=== PATIENT | female | born 1980 | race Caucasian/White ===

== ENCOUNTER 2017-07-10 10:51 | Inpatient (IN) ==
[2017-07-10] MEDS ORDERED: Ondansetron 4 MG/2 ML VIAL IVP PRN (11:22)
[2017-07-10] MEDS ORDERED: *HR* Nalbuphine 10 MG/ML AMPUL IVP PRN (11:22)
[2017-07-10] MEDS ORDERED: Naloxone 0.4 MG/ML INJ IVP PRN (11:22)
[2017-07-10] MEDS ORDERED: Famotidine 20 MG/2 ML VIAL IVP PRN (11:22)
[2017-07-10] MEDS ORDERED: Lidocaine 1% 20 ML MDV INFILT PRN (11:22)
[2017-07-10] MEDS ORDERED: Metoclopramide 10 MG/2 ML VIAL IVP PRN (11:22)
[2017-07-10] MEDS ORDERED: Penicillin G Potassium 5,000,000 UNIT in D5% in Water (Mini-Bag+) 100 ML IVPB ONE (11:27)
[2017-07-10] MEDS ORDERED: Oxytocin 20 units/ LR 1000 mL 20 UNIT/1,000 ML BAG IVC SCH ×2 (11:30→22:17)
[2017-07-10] MEDS: Ringers Solution, Lactated 1,000 ML IVC SCH ×2 (12:15→16:38)
[2017-07-10] MEDS ORDERED: Penicillin G Potassium 5,000,000 UNIT in 0.9 % Sodium Chloride Mini Bag 100 ML IVPB ONE (12:15)
[2017-07-10 12:16] LABS: Basophils % 0.3 %; Eosinophils # 0.1 K/mcL (0.0-0.6); Eosinophils % 0.5 %; Hematocrit 35.3 % (35.3-44.9); Hemoglobin 11.7 g/dL (11.5-15.4); Immature Granulocytes % 0.5 % (0-4); Lymphocytes # 1.9 K/mcL (0.6-4.6); Lymphocytes % 19.5 %; Mean Corpuscular HGB Conc 33.1 g/dL (31.6-35.5); Mean Corpuscular Hemoglobin 29.7 pg (28.0-33.3); Mean Corpuscular Volume 89.6 fL (83.0-100.0); Mean Platelet Volume 10.2 fL (9.4-12.4); Monocytes # 0.5 K/mcL (0.0-1.3); Neutrophils # 7.3 K/mcL (1.6-8.9); Platelet Count 203 K/mcL (140-400); Red Blood Count 3.94 M/mcL (3.82-4.97); Red Cell Distribution Width 13.7 % (11.5-14.5); Segmented Neutrophils % 74.2 %
--- NOTE | 2017-07-10 12:51 | OB/GYN History & Physical ---
Date of Encounter: 07/10/17 Time of Encounter: 12:47 Assessment and Plan (1) 37 weeks gestation of Current visit: Yes Status: Acute (2) Intrauterine growth restriction (IUGR) affecting care of mother, third trimester, single gestation Current visit: Yes Status: Acute Admit to labor and delivery Induction of labor with oxytocin Penicillin for GBS Nubain and epidural as desired Anticipate History of Present Illness HPI: Ms. Bruce is a 37 year old female 37+2 weeks gestation presents to labor and delivery for induction of labor. ultrasound today shows: TA exam-- morin VTX male--+FHR--anterior grade 1 placenta--EFW 2372 grams 5lb 4oz 10.2 %--EGA 57t5l--ARZ 54j8g--FSS 21.02 cm--S/D ratio 2.6--RI .6 with head and abdominal circumference less than the 1st percentile. Drs. Cruz and Robin agreed that patient with gestational diabetes needs to be induced at this time. Reports good movement, denies vaginal bleeding or leaking of fluid. complicated with gestational diabetes patient is controlled on metformin. Labs: A+, rubella immune, GBS positive, all other serologies negative Past Med Surg Social Fam HX - Past Medical History Medical history: other Psychiatric history: anxiety, depression - Past Surgical History Surgical History: no surgical history - Social History Smoking Status: Never smoker Smokeless Tobacco Status: No Alcohol use: none Drug use: none - Family History Mother Family Member Ethnicity: Non- Living Status: Still Living Hx Family Endocrine Disorder: Yes (diabetes) Obstetrical History - Pregnancies : 2 Para: 1 Term: 1 : 0 Ab's: 0 Livin Medications and Allergies Pnv Cmb#21/Iron/Folic Acid [ Complete Caplet] 1 each PO DAILY 06/22/17 [ History] Sertraline [Zoloft] 50 mg PO DAILY 06/22/17 [History] metFORMIN [Glucophage] 1,000 mg PO DAILY 06/22/17 [History] Omeprazole Magnesium [Prilosec Otc] 20 mg PO DAILY 07/10/17 [History] 3 Allergy/AdvReac Type Severity Reaction Status Date / Time No Known Allergies Allergy Verified 07/02/17 13:45 Exam - Constitutional Constitutional: well developed, well nourished, no acute distress, average body habitus - Neck Neck exam: full ROM - Lungs Respiratory exam: CTAB - Cardiovascular Cardiovascular exam: RRR - Abdomen Abdomen: Present: bowel sounds normal, gravid, non tender - Extremities Extremities exam: normal capillary refill, normal inspection - Vagina Vagina: Present: normal moisture - Cervix Dilation: 4 (per MD exam) - Uterus Uterus exam: Present: normal size, normal contour Results Result Diagrams: 07/10/17 11:40 All other labs normal. - VTE Reasons for not Prescribing Prophylaxis: Treatment not Indicated - Low risk for VTE
[2017-07-10 13:21] LABS: Amphetamine Screen,Urine Negative ng/mL (Cutoff=1000); Barbiturate Screen,Urine Negative ng/mL (Cutoff=200); Benzodiazepines Screen,Urine Negative ng/mL (Cutoff=200); Cannabinoid Screen,Urine Negative ng/mL (Cutoff = 50); Cocaine Screen,Urine Negative ng/mL (Cutoff= 300); Opiate Screen,Urine Negative ng/mL (Cutoff=300); Phencyclidine Screen,Urine Negative ng/mL (Cutoff=25)
[2017-07-10] MEDS ORDERED: EPHEDrine 50 MG/ML VIAL IVP PRN (14:08)
[2017-07-10] MEDS ORDERED: *HR* FentaNYL (PF) 100 MCG/2 ML VIAL EP ONE (14:08)
--- NOTE | 2017-07-10 14:08 | Anesthesia Evaluation PreOp ---
Date of Encounter: 07/10/17 Time of Encounter: 14:06 - Past History Planned Operation: yris Cardiac History: Denies any Significant Hx Pulmonary History: Denies Any Significant HX DIRECTOR [employer]LECTRON[employer] History: Denies Any Significant HX Other Medical History: Diabetes Type II (gestational), GERD, Other (depression) Anesthesia History: No Prior Anesthetic Complications, Past Anesthesia : Yes (37 weeks ) Alcohol Use: none Drug use: none Medications and Allergies Pnv Cmb#21/Iron/Folic Acid [ Complete Caplet] 1 each PO DAILY 06/22/17 [ History] Sertraline [Zoloft] 50 mg PO DAILY 06/22/17 [History] metFORMIN [Glucophage] 1,000 mg PO DAILY 06/22/17 [History] Omeprazole Magnesium [Prilosec Otc] 20 mg PO DAILY 07/10/17 [History] 3 Allergy/AdvReac Type Severity Reaction Status Date / Time No Known Allergies Allergy Verified 07/02/17 13:45 - Meds/Allergy Pre-op Review Medications Reviewed: Yes Allergies Reviewed: Yes Beta Blockers on Current Med List: No Anesthesia Results - Labs 07/10/17 11:40 Anesthesia Exam O2 Sat Height 1.57 m Height 1.57 m Weight 90 kg Weight 90 kg Height: 62 Weight: 90 - HEENT Pupil (Motor): Pupils equal Mallampati: II Teeth: Normal Oral Opening: Greater than 3 - DIRECTOR [employer]LECT[employer] LOC: Oriented DIRECTOR [employer]LECT[employer] Motor: Normal RUE, Normal LUE, Normal RLE, Normal LLE, Normal Face [employer] Sensory: Normal: RUE, LUE, RLE, LLE, Face - Cardiac Rhythm: Regular Murmur: None JVD: No Carotid Bruit: No - Pulmonary Respiratory Effort: Symmetrical Anesthesia Assess/Plan ASA Score: 2 Modified Spruce Scale for Level of Consciousness: Cooperative, oriented, and tranquil Anesthetic Plan: Regional Monitoring Plan: Standard Monitors
[2017-07-10] MEDS ORDERED: Epidural Premix (fent/bupiv) 110 ML EP SCH (14:15)
[2017-07-10] MEDS ORDERED: Epidural Premix (fent/bupiv) 110 ML EP ONE (14:16)
[2017-07-10] MEDS ORDERED: *HR* FentaNYL (PF) 100 MCG/2 ML VIAL ONE (14:19)
[2017-07-10] MEDS ORDERED: Bupivacaine-MPF 0.25% 10 ML VIAL ONE (14:19)
--- NOTE | 2017-07-10 14:56 | Anesthesia Procedures ---
Date of Encounter: 07/10/17 Time of Encounter: 14:51 Procedures: Anesthesia - Epidural/Spinal Patient ID/Chart reviewed: Yes Patient examined: Yes OB Eval: Gestational age: 37 OB Eval: : 2 OB Eval: Hx Para: 1 OB Eval: Dilated at (cm): 4 OB Eval: Contractions: Non-stressed pattern Consent Obtained: Yes Supplemental Oxygen: None/Room Air Site Prep: Aseptic Technique Patient position: upright Local Anesthetic: Lidocaine 1% Amount of Local Anesthetic used: 2 Touhy Needle Gauge: 18 Touhy Needle Depth (cm): 8 Catheter Depth at Skin (cm): 13 Test Dose (1.5% Lido + Epi): Volume given (mls): 3 Test Dose Result: Negative Loading Dose: 0.25% Marcaine (mls): 6 Loading Dose: Fentanyl (mcg): 100 Loading Dose Administered: Thru Touhy Needle Infusion Med: 0.125% Bupivacaine w/ 2 mcg/ml Fentanyl Infusion Rate (mls/hr): [address]: Tegaderm Interspace Used: L3-L4 Loss of Resistance (AYSHA): Yes Blood: No CSF: No Paresthesia: No
[2017-07-10] MEDS ORDERED: EPHEDrine 50 MG/ML VIAL ONE (15:11)
[2017-07-10] MEDS ORDERED: Penicillin G Potassium 2,500,000 UNIT in 0.9 % Sodium Chloride 100 ML IVPB SCH (16:00)
--- NOTE | 2017-07-10 17:01 | OB Labor Progress Note ---
Date of Encounter: 07/10/17 Time of Encounter: 16:59 Labor Progress Note - Subjective Subjective: Pt comfortable with epidural - Cervix Cervix: 5/90/-1 - Heart Tones Heart Tones: 135/moderate/+accels/-decels - Hankinson Hankinson: q2-3 - Interventions Interventions: AROM for small amount of clear fluid - Plan Plan: Continue pitocin per policy PCN for GBS Anticipate
--- NOTE | 2017-07-10 20:39 | OB/GYN Procedure Note ---
Delivery - Delivery Date: 07/10/17 Provider: Chelly Jacob Intrapartum events: none Delivery induction: AROM, oxytocin Delivery monitor: external FHT, external uterine Anesthesia: epidural Estimated Blood Loss: 200 - (s) A Delivery Date: 07/10/17 Infant Delivery Time: 20:14 Presentation: vertex Position: OA Route of delivery: Gender: Male Viability: Viable Pounds: 5 Ounces: 9 Weight Gram: 2535 kg at 1 minute: 8 at 5 mins: 9 Shoulder Dystocia: not encountered Specimens collected: cord blood Placenta: spontaneous Cord: 3 umbilical vessels - Repair Episiotomy: none Laceration Description: None - Complications Delivery complications: none Delivery comments: Induction of labor for IUGR with Pitocin and AROM. Progressed to complete, maternal bearing down efforts of liveborn male. Vertex delivered OA, shoulders and body easily followed, no nuchal cord or shoulder dystocia encountered. Vigorous placed on maternal abdomen. Apgars 8/9 placenta delivered spontaneously, complete (Noah). Fundus massaged until firm Pitocin started per policy. Perineum intact. EBL 200 - Disposition Mom disposition: stable in LDR [place] disposition: stable in LDR
[2017-07-10] MEDS ORDERED: Ibuprofen 600 MG TABLET PO PRN (22:17)
[2017-07-10] MEDS ORDERED: Benzocaine/Menthol 56 GM AEROSOL SPRAY TP PRN (22:17)
[2017-07-10] MEDS ORDERED: Lanolin 7 G OINT...G. TP PRN (22:17)
[2017-07-10] MEDS ORDERED: Acetaminophen 325 MG TABLET PO PRN (22:17)
[2017-07-11 05:00] LABS: Basophils % 0.2 %; Eosinophils # 0.1 K/mcL (0.0-0.6); Eosinophils % 0.4 %; Hematocrit 34.6 % (35.3-44.9); Hemoglobin 11.2 g/dL (11.5-15.4); Immature Granulocytes % 0.5 % (0-4); Lymphocytes # 2.1 K/mcL (0.6-4.6); Lymphocytes % 17.3 %; Mean Corpuscular HGB Conc 32.4 g/dL (31.6-35.5); Mean Corpuscular Hemoglobin 29.4 pg (28.0-33.3); Mean Corpuscular Volume 90.8 fL (83.0-100.0); Mean Platelet Volume 10.2 fL (9.4-12.4); Monocytes # 0.6 K/mcL (0.0-1.3); Monocytes % 5.1 %; Neutrophils # 9.2 K/mcL (1.6-8.9); Platelet Count 155 K/mcL (140-400); Red Blood Count 3.81 M/mcL (3.82-4.97); Red Cell Distribution Width 13.8 % (11.5-14.5); Segmented Neutrophils % 76.5 %
[2017-07-11 08:01] VITALS: BP 115/75
[2017-07-11] MEDS ORDERED: Prenatal Vit/FA 1 EACH TABLET PO SCH (09:00)
--- NOTE | 2017-07-11 10:31 | Discharge Summary ---
Date of Encounter: 07/11/17 Time of Encounter: 10:27 - Discharge Diagnosis (1) Vaginal delivery Priority: Primary Status: Acute Comments: Pt meeting all milestones. She desires discharge home this evening. - Discharge Medications Prescriptions: Ibuprofen [Motrin] 600 mg PO Q6HR PRN #30 tablet PRN Reason: Cramping Docusate [Colace] 100 mg PO BID #30 capsule Home Medications: Pnv Cmb#21/Iron/Folic Acid [ Complete Caplet] 1 each PO DAILY 06/22/17 [ History] Sertraline [Zoloft] 50 mg PO DAILY 06/22/17 [History] Benzocaine/Menthol [place] [Dermoplast [place]] 1 appl TP QID PRN aerosol 07/11/17 [Rx] Docusate [Colace] 100 mg PO BID #30 capsule 07/11/17 [Rx] Ibuprofen [Motrin] 600 mg PO Q6HR PRN #30 tablet 07/11/17 [Rx] Lanolin [Lansinoh] 1 appl TP QID PRN oint...g. 07/11/17 [Rx] Allergies/Adverse Reactions: 3 Allergy/AdvReac Type Severity Reaction Status Date / Time No Known Allergies Allergy Verified 07/02/17 13:45 Data Procedures and tests throughout hospitalization: Laboratory Tests 07/10/17 07/10/17 07/10/17 11:40 12:40 16:32 WBC 9.8 RBC 3.94 Hgb 11.7 Hct 35.3 MCV 89.6 MCH 29.7 MCHC 33.1 RDW 13.7 Plt Count 203 MPV 10.2 Immature Gran % 0.5 Seg Neutrophils % 74.2 Lymphocytes % 19.5 Monocytes % 5.0 Eosinophils % 0.5 Basophils % 0.3 Neutrophils # 7.3 Lymphocytes # 1.9 Monocytes # 0.5 Eosinophils # 0.1 Basophils # 0.0 POC Glucose 79 Urine Opiates Screen Negative Ur Barbiturates Screen Negative Ur Phencyclidine Scrn Negative Ur Amphetamines Screen Negative U Benzodiazepines Scrn Negative Urine Cocaine Screen Negative U Marijuana (THC) Screen Negative 07/11/17 04:09 WBC 12.0 H RBC 3.81 L Hgb 11.2 L Hct 34.6 L MCV 90.8 MCH 29.4 MCHC 32.4 RDW 13.8 Plt Count 155 MPV 10.2 Immature Gran % 0.5 Seg Neutrophils % 76.5 Lymphocytes % 17.3 Monocytes % 5.1 Eosinophils % 0.4 Basophils % 0.2 Neutrophils # 9.2 H Lymphocytes # 2.1 Monocytes # 0.6 Eosinophils # 0.1 Basophils # 0.0 POC Glucose Urine Opiates Screen Ur Barbiturates Screen Ur Phencyclidine Scrn Ur Amphetamines Screen U Benzodiazepines Scrn Urine Cocaine Screen U Marijuana (THC) Screen Labs on day of discharge: Labs from last 24 hours 07/11/17 07/10/17 07/10/17 04:09 16:32 12:40 WBC 12.0 H RBC 3.81 L Hgb 11.2 L Hct 34.6 L MCV 90.8 MCH 29.4 MCHC 32.4 RDW 13.8 Plt Count 155 MPV 10.2 Immature Gran % 0.5 Seg Neutrophils % 76.5 Lymphocytes % 17.3 Monocytes % 5.1 Eosinophils % 0.4 Basophils % 0.2 Neutrophils # 9.2 H Lymphocytes # 2.1 Monocytes # 0.6 Eosinophils # 0.1 Basophils # 0.0 POC Glucose 79 Urine Opiates Screen Negative Ur Barbiturates Screen Negative Ur Phencyclidine Scrn Negative Ur Amphetamines Screen Negative U Benzodiazepines Scrn Negative Urine Cocaine Screen Negative U Marijuana (THC) Screen Negative 07/10/17 11:40 WBC 9.8 RBC 3.94 Hgb 11.7 Hct 35.3 MCV 89.6 MCH 29.7 MCHC 33.1 RDW 13.7 Plt Count 203 MPV 10.2 Immature Gran % 0.5 Seg Neutrophils % 74.2 Lymphocytes % 19.5 Monocytes % 5.0 Eosinophils % 0.5 Basophils % 0.3 Neutrophils # 7.3 Lymphocytes # 1.9 Monocytes # 0.5 Eosinophils # 0.1 Basophils # 0.0 POC Glucose Urine Opiates Screen Ur Barbiturates Screen Ur Phencyclidine Scrn Ur Amphetamines Screen U Benzodiazepines Scrn Urine Cocaine Screen U Marijuana (THC) Screen Date of admission: 07/10/17 10:51 Primary care physician: PCP NONE Consults: 07/10/17 22:17 Consult to Insert Operator [CONS] Routine Comment: Vaginal delivery, consult needed Discharging clinician: Domitila Humphries Anticipated date of discharge: 07/11/17 - Patient Status Disposition: Home, Self-Care Condition: Good Functional capacity at discharge: independent ambulation Overall status at discharge: patient is progressing back to baseline - Discharge Instructions Follow Up With: NONE,PCP [Primary Care Provider] - Fer Kelly DO [Partnered Physician] - - Diet and Activity Activity: increase activity as tolerated Diet: regular diet Hospital Course Reason for admission: induction of labor Delivery: Episiotomy: none Laceration: none Other procedures: none complications: none Discharge diagnosis: IUP at term delivered baby: male Hospital course: - Delivery Date: 07/10/17 Provider: Chelly Jacob Intrapartum events: none Delivery induction: AROM, oxytocin Delivery monitor: external FHT, external uterine Anesthesia: epidural Estimated Blood Loss: 200 - (s) A Delivery Date: 07/10/17 Infant Delivery Time: 20:14 Presentation: vertex Position: OA Route of delivery: Gender: Male Viability: Viable Pounds: 5 Ounces: 9 Weight Gram: 2535 kg at 1 minute: 8 at 5 mins: 9 Shoulder Dystocia: not encountered Specimens collected: cord blood Placenta: spontaneous Cord: 3 umbilical vessels - Repair Episiotomy: none Laceration Description: None - Complications Delivery complications: none - Disposition Mom disposition: home PPD1 [place] disposition: home with mother bottle feeding Time Attestation: Total time spent providing and/or coordinating discharge services: Time Spent: Less than 30 minutes Exam - Constitutional Vitals: Temp Pulse Resp BP Pulse Ox 97.9 F 81 16 115/75 98 07/11/17 08:00 07/11/17 08:00 07/11/17 08:00 07/11/17 08:00 07/11/17 08:00 General appearance IM: A&O X 3 - Respiratory Respiratory exam: Present: CTAB - Cardiovascular Cardiovascular exam IM: Present: RRR - GI/Abdominal GI/Abdominal exam IM: soft - Uterine Tone: Firm Uterus Position: At Umbilicus - Extremities Exam Extremities exam IM: Present: normal inspection - Neurological Exam Neurological exam: normal gait, oriented X3 - Psychiatric Additional comments: reports some mood swings last evening but better today. Denies any depression history. Precautions given.
== END 2017-07-11 16:58 | disposition home or self-care (01) | DRG 560 ==
LOC: 1NENULAB 10:51 → 1NENUOBS 23:48
PROVIDERS: ADMIT Student in an Organized Health Care Education/Training Program; ATTEND Student in an Organized Health Care Education/Training Program

== ENCOUNTER 2017-07-12 11:48 | Inpatient (IN) ==
--- NOTE | 2017-07-12 11:55 | Emergency Department Note ---
Disposition Clinical Impression: Medical clearance for psychiatric admission, Acute psychosis Disposition: Admitted As Inpatient Condition: Fair Referrals: NONE,PCP [Primary Care Provider] - Poncho Krishnamurthy [Family Provider] - Time of Disposition: 16:31 General Adult HPI - General Chief complaint: ED Psychiatric Symptoms Stated complaint: psych/anxiety/panic attacks/depression/hallucinati Time Seen by Provider: 07/12/17 11:50 Nursing Notes Reviewed: Yes Vital Signs Reviewed: Yes - History of Present Illness HPI Narrative: Ms. Bruce is a very pleasant 37-year-old female with a past medical history of anxiety and depression who presents to the [facility] emergency department directly from the [employer] floor after she was found to have worsening signs of depression. This report stated that she repeatedly was stating "you people are trying to kill me ". At that time she had denied any evidence of suicidality or homicidality. Patient just underwent a successful vaginal delivery on and was unremarkable period until today. She has a history of taking Effexor and Zyprexa but was switched off to Zoloft which she was . Her previous and roughly 11 years ago were unremarkable. states that she had no thoughts of hurting her child. was on to state that she was previously admitted to a psychiatric facility several years ago for what he thought was acute psychosis. She is currently following a psychologist on a really for her chronic medical conditions. No other complaints at this time. - Related Data Home Medications Medication Instructions Recorded Confirmed Pnv Cmb#21/Iron/Folic Acid 1 each PO DAILY 06/22/17 07/10/17 [ Complete Caplet] Sertraline [Zoloft] 50 mg PO DAILY 06/22/17 07/10/17 Ondansetron HCl [Ondansetron HCl] 4 mg PO BID PRN 07/12/17 07/12/17 Previous Rx's Medication Instructions Recorded Docusate [Colace] 100 mg PO BID #30 capsule 07/11/17 Ibuprofen [Motrin] 600 mg PO Q6HR PRN #30 tablet 07/11/17 Allergies Allergy/AdvReac Type Severity Reaction Status Date / Time No Known Allergies Allergy Verified 07/12/17 16:52 Limitations: ROS unobtainable due to patients medical condition Past Medical History - Past Medical History Medical history: Reports: other Surgical history: Reports: no surgical history Psychiatric history: Reports: anxiety, depression [employer] history: Reports: no LE[employer]ENT history - Social History Smoking Status: Never smoker Smokeless Tobacco Status: No Alcohol use: Reports: none Drug use: Reports: none Physical Exam CONSTITUTIONAL: Patient appears somnolent and disinterested. She is lying down with the lights off and is minimally conversant HEAD: Normocephalic; atraumatic. RESP: NRD without use of accessory musculature, CTA b/l with no wheezes/rales/ rhonchi CARD: Regular rhythm, without murmurs, rubs, or gallop ABD: grossly normal, soft, non-tender, no guarding/distention/rigidity SKIN: normal appearance, no pallor/diaphoresis,mottling,jaundice,cyanosis PSYCH: depressed, crying Course Course Narrative: Patient was seen and examined at bedside with present. Vital signs were reviewed and were unremarkable. Physical examination shows a somnolent patient who is disinterested and minimally conversant. Her was able to provide much of the information. We will begin workup for medical clearance prior to his psychiatric evaluation. We are concerned about this psychosis versus possible postictal period after sustaining an unwitnessed seizure from worsening pre-eclampsia that can be present for 2 weeks post- . Again patient appears comfortable and not agitated at this time. No medical therapy is required at this time. This disposition and plan was discussed with patient and who understand and agree to this plan. 1504: Medical clearance workup is negative so far. VSS. UA shows trace protein. Pending alcohol. Psychiatric team from was contacted for evaluation of this patient who accepted request and will come to the ED shortly. Repeat examination demonstrates AAOx3, occasionally smiling and conversant individual. She denies any current suicidality or homicidality. I anticipate patient will be admitted to for restarting her psych medication regimen. 1615: Workup complete and negative. Psychiatric team was present in the emergency department for evaluation of this patient. Recommendations at this time would include admission to psychiatric unit. Disposition was discussed with patient and who agreed to this plan. Vital Signs Temperature 98 F 07/12/17 11:50 Pulse Rate 90 07/12/17 11:50 Respiratory Rate 20 07/12/17 11:50 Blood Pressure 125/86 07/12/17 11:50 O2 Sat by Pulse Oximetry 98 07/12/17 11:50 Temperature 98 F 07/12/17 11:50 Pulse Rate 90 07/12/17 11:50 Respiratory Rate 16 07/12/17 17:39 Blood Pressure 146/91 07/12/17 17:39 O2 Sat by Pulse Oximetry 98 07/12/17 11:50 Oxygen Delivery Oxygen Delivery Room Air Medical Decision Making - Medical Records Medical records reviewed: Yes I reviewed the patient's medical records. - Lab Data Result diagrams: 07/12/17 12:19 07/12/17 12:19 Lab Results 07/12/17 07/12/17 07/12/17 Range/Units 11:58 11:58 12:19 WBC 9.4 (4.3-11.1) K/mcL RBC 3.98 (3.82-4.97) M/mcL Hgb 11.9 (11.5-15.4) g/dL Hct 35.8 (35.3-44.9) % MCV 89.9 (83.0-100.0) fL MCH 29.9 (28.0-33.3) pg MCHC 33.2 (31.6-35.5) g/dL RDW 13.5 (11.5-14.5) % Plt Count 183 (140-400) K/mcL MPV 9.8 (9.4-12.4) fL Immature Gran % 0.5 (0-4) % Seg Neutrophils % 84.4 % Lymphocytes % 12.0 % Monocytes % 2.7 % Eosinophils % 0.2 % Basophils % 0.2 % Neutrophils # 7.9 (1.6-8.9) K/mcL Lymphocytes # 1.1 (0.6-4.6) K/mcL Monocytes # 0.3 (0.0-1.3) K/mcL Eosinophils # 0.0 (0.0-0.6) K/mcL Basophils # 0.0 (0.0-0.2) K/mcL Sodium (136-145) mEq/L Potassium (3.5-5.1) mEq/L Chloride (98-107) mEq/L Carbon Dioxide (23-29) mEq/L BUN (6-20) mg/dL Creatinine (0.60-1.20) mg/dL Est GFR ( Amer) (> 60) Est GFR (Non-Af Amer) (> 60) BUN/Creatinine Ratio (6-26) Glucose (70-105) mg/dL Calculated Osmolality (280-300) Calcium (8.6-10.3) mg/dL Urine Color Yellow (Yellow) Urine Clarity Clear (Clear) Urine pH 6.0 (5.0-8.0) pH Units Ur Specific [place] 1.022 (1.010-1.025) Urine Protein Trace (Neg-Trace) mg/dL Urine Glucose (UA) Normal (Normal) mg/dL Urine Ketones 40 H (Negative) mg/dL Urine Blood Large H (Negative) Urine Nitrite Negative (Negative) Urine Bilirubin Negative (Negative) Urine Urobilinogen Normal (Normal) mg/dL Ur Leukocyte Esterase Small H (Negative) Urine Microscopic RBC 50-100 H (0-3) per hpf Urine Microscopic WBC 5-15 H (0-3) per hpf Ur Squamous Epith Cells Many H (None-Few) per lpf Urine Bacteria None Seen (None-Few) per hpf Hyaline Casts None Seen (None-Few) per lpf Salicylates (15.0-30.0) mg/dL Urine Opiates Screen Negative (Hysdto=982) ng/mL Acetaminophen (10-20) mcg/mL Ur Barbiturates Screen Negative (Pruqho=287) ng/mL Ur Phencyclidine Scrn Negative (Cutoff=25) ng/mL Ur Amphetamines Screen Negative (Ehmuyu=4551) ng/mL U Benzodiazepines Scrn Negative (Tvfcou=010) ng/mL Urine Cocaine Screen Negative (Cutoff= 300) ng/mL U Marijuana (THC) Screen Negative (Cutoff = 50) ng/mL Ethyl Alcohol (Less than 10) mg/dL 07/12/17 Range/Units 12:19 WBC (4.3-11.1) K/mcL RBC (3.82-4.97) M/mcL Hgb (11.5-15.4) g/dL Hct (35.3-44.9) % MCV (83.0-100.0) fL MCH (28.0-33.3) pg MCHC (31.6-35.5) g/dL RDW (11.5-14.5) % Plt Count (140-400) K/mcL MPV (9.4-12.4) fL Immature Gran % (0-4) % Seg Neutrophils % % Lymphocytes % % Monocytes % % Eosinophils % % Basophils % % Neutrophils # (1.6-8.9) K/mcL Lymphocytes # (0.6-4.6) K/mcL Monocytes # (0.0-1.3) K/mcL Eosinophils # (0.0-0.6) K/mcL Basophils # (0.0-0.2) K/mcL Sodium 138 (136-145) mEq/L Potassium 3.3 L (3.5-5.1) mEq/L Chloride 106 (98-107) mEq/L Carbon Dioxide 20 L (23-29) mEq/L BUN 6 (6-20) mg/dL Creatinine 0.70 (0.60-1.20) mg/dL Est GFR ( Amer) > 60 (> 60) Est GFR (Non-Af Amer) > 60 (> 60) BUN/Creatinine Ratio 9 (6-26) Glucose 122 H (70-105) mg/dL Calculated Osmolality 285 (280-300) Calcium 8.9 (8.6-10.3) mg/dL Urine Color (Yellow) Urine Clarity (Clear) Urine pH (5.0-8.0) pH Units Ur Specific [place] (1.010-1.025) Urine Protein (Neg-Trace) mg/dL Urine Glucose (UA) (Normal) mg/dL Urine Ketones (Negative) mg/dL Urine Blood (Negative) Urine Nitrite (Negative) Urine Bilirubin (Negative) Urine Urobilinogen (Normal) mg/dL Ur Leukocyte Esterase (Negative) Urine Microscopic RBC (0-3) per hpf Urine Microscopic WBC (0-3) per hpf Ur Squamous Epith Cells (None-Few) per lpf Urine Bacteria (None-Few) per hpf Hyaline Casts (None-Few) per lpf Salicylates < 2.5 L (15.0-30.0) mg/dL Urine Opiates Screen (Aqzikf=169) ng/mL Acetaminophen < 10 L (10-20) mcg/mL Ur Barbiturates Screen (Vhkber=341) ng/mL Ur Phencyclidine Scrn (Cutoff=25) ng/mL Ur Amphetamines Screen (Ivlobu=0824) ng/mL U Benzodiazepines Scrn (Jftvqs=816) ng/mL Urine Cocaine Screen (Cutoff= 300) ng/mL U Marijuana (THC) Screen (Cutoff = 50) ng/mL Ethyl Alcohol < 10 (Less than 10) mg/dL
[2017-07-12 12:12] LABS: Bilirubin,Urine Negative (Negative); Blood,Urine Large (Negative); Clarity,Urine Clear (Clear); Color,Urine Yellow (Yellow); Glucose,Urine (UA) Normal (Normal); Ketones,Urine 40 mg/dL (Negative); Leukocyte Esterase,Urine Small (Negative); Nitrite,Urine Negative (Negative); Protein,Urine Trace mg/dL (Neg-Trace); Specific Gravity,Urine 1.022 (1.010-1.025); Urobilinogen,Urine Normal (Normal)
[2017-07-12 12:14] LABS: Bacteria,Urine None Seen per hpf (None-Few); Hyaline Casts,Urine None Seen per lpf (None-Few); RBC,Urine 50-100 per hpf (0-3); Squamous Epithelial Cell,Urine Many per lpf (None-Few)
[2017-07-12 12:29] LABS: Basophils % 0.2 %; Eosinophils % 0.2 %; Hematocrit 35.8 % (35.3-44.9); Hemoglobin 11.9 g/dL (11.5-15.4); Immature Granulocytes % 0.5 % (0-4); Lymphocytes # 1.1 K/mcL (0.6-4.6); Mean Corpuscular HGB Conc 33.2 g/dL (31.6-35.5); Mean Corpuscular Hemoglobin 29.9 pg (28.0-33.3); Mean Corpuscular Volume 89.9 fL (83.0-100.0); Mean Platelet Volume 9.8 fL (9.4-12.4); Monocytes # 0.3 K/mcL (0.0-1.3); Monocytes % 2.7 %; Neutrophils # 7.9 K/mcL (1.6-8.9); Platelet Count 183 K/mcL (140-400); Red Blood Count 3.98 M/mcL (3.82-4.97); Red Cell Distribution Width 13.5 % (11.5-14.5); Segmented Neutrophils % 84.4 %
[2017-07-12 13:04] LABS: BUN/Creatinine Ratio 9 (6-26); Blood Urea Nitrogen 6 mg/dL (6-20); Calcium 8.9 mg/dL (8.6-10.3); Carbon Dioxide 20 mEq/L (23-29); Chloride 106 mEq/L (98-107); Glucose 122 mg/dL (70-105); Osmolality,Calculated 285 (280-300); Potassium 3.3 mEq/L (3.5-5.1); Sodium 138 mEq/L (136-145); eGFR For African Americans > 60 (> 60); eGFR For Non-African Americans > 60 (> 60)
[2017-07-12 13:39] LABS: Amphetamine Screen,Urine Negative ng/mL (Cutoff=1000); Barbiturate Screen,Urine Negative ng/mL (Cutoff=200); Benzodiazepines Screen,Urine Negative ng/mL (Cutoff=200); Cannabinoid Screen,Urine Negative ng/mL (Cutoff = 50); Cocaine Screen,Urine Negative ng/mL (Cutoff= 300); Opiate Screen,Urine Negative ng/mL (Cutoff=300); Phencyclidine Screen,Urine Negative ng/mL (Cutoff=25)
--- NOTE | 2017-07-12 15:01 | Emergency Department Note ---
Disposition Clinical Impression: Medical clearance for psychiatric admission, Acute psychosis Disposition: Admitted As Inpatient Condition: Fair General Adult HPI - General Chief complaint: ED Psychiatric Symptoms Stated complaint: psych/anxiety/panic attacks/depression/hallucinati Time Seen by Provider: 07/12/17 11:50 Source: patient, family, other Limitations: no limitations Nursing Notes Reviewed: Yes Vital Signs Reviewed: Yes - History of Present Illness Pain Scale: 0 - Related Data Home Medications Medication Instructions Recorded Confirmed Pnv Cmb#21/Iron/Folic Acid 1 each PO DAILY 06/22/17 07/12/17 [ Complete Caplet] Sertraline [Zoloft] 50 mg PO DAILY 06/22/17 07/12/17 Ondansetron HCl [Ondansetron HCl] 4 mg PO BID PRN 07/12/17 07/12/17 Previous Rx's Medication Instructions Recorded Docusate [Colace] 100 mg PO BID #30 capsule 07/11/17 Ibuprofen [Motrin] 600 mg PO Q6HR PRN #30 tablet 07/11/17 Allergies Allergy/AdvReac Type Severity Reaction Status Date / Time No Known Allergies Allergy Verified 07/12/17 16:52 Past Medical History - Past Medical History Medical history: Reports: other Surgical history: Reports: no surgical history Psychiatric history: Reports: anxiety, depression 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 history - Social History Smoking Status: Never smoker Smokeless Tobacco Status: No Alcohol use: Reports: none Drug use: Reports: none Physical Exam - General Limitations: no limitations General appearance: alert Course Vital Signs Temperature 98 F 07/12/17 11:50 Pulse Rate 90 07/12/17 11:50 Respiratory Rate 20 07/12/17 11:50 Blood Pressure 125/86 07/12/17 11:50 O2 Sat by Pulse Oximetry 98 07/12/17 11:50 Temperature 97.2 F L 07/15/17 09:00 Pulse Rate 87 07/15/17 09:00 Respiratory Rate 18 07/15/17 09:00 Blood Pressure 129/84 07/15/17 09:00 O2 Sat by Pulse Oximetry 98 07/12/17 11:50 Oxygen Delivery Oxygen Delivery Room Air Medical Decision Making - Lab Data Result diagrams: 07/12/17 12:19 07/12/17 12:19 Lab Results 07/12/17 07/12/17 07/12/17 Range/Units 11:58 11:58 12:19 WBC 9.4 (4.3-11.1) K/mcL RBC 3.98 (3.82-4.97) M/mcL Hgb 11.9 (11.5-15.4) g/dL Hct 35.8 (35.3-44.9) % MCV 89.9 (83.0-100.0) fL MCH 29.9 (28.0-33.3) pg MCHC 33.2 (31.6-35.5) g/dL RDW 13.5 (11.5-14.5) % Plt Count 183 (140-400) K/mcL MPV 9.8 (9.4-12.4) fL Immature Gran % 0.5 (0-4) % Seg Neutrophils % 84.4 % Lymphocytes % 12.0 % Monocytes % 2.7 % Eosinophils % 0.2 % Basophils % 0.2 % Neutrophils # 7.9 (1.6-8.9) K/mcL Lymphocytes # 1.1 (0.6-4.6) K/mcL Monocytes # 0.3 (0.0-1.3) K/mcL Eosinophils # 0.0 (0.0-0.6) K/mcL Basophils # 0.0 (0.0-0.2) K/mcL Sodium (136-145) mEq/L Potassium (3.5-5.1) mEq/L Chloride (98-107) mEq/L Carbon Dioxide (23-29) mEq/L BUN (6-20) mg/dL Creatinine (0.60-1.20) mg/dL Est GFR ( Amer) (> 60) Est GFR (Non-Af Amer) (> 60) BUN/Creatinine Ratio (6-26) Glucose (70-105) mg/dL Calculated Osmolality (280-300) Calcium (8.6-10.3) mg/dL Urine Color Yellow (Yellow) Urine Clarity Clear (Clear) Urine pH 6.0 (5.0-8.0) pH Units Ur Specific [place] 1.022 (1.010-1.025) Urine Protein Trace (Neg-Trace) mg/dL Urine Glucose (UA) Normal (Normal) mg/dL Urine Ketones 40 H (Negative) mg/dL Urine Blood Large H (Negative) Urine Nitrite Negative (Negative) Urine Bilirubin Negative (Negative) Urine Urobilinogen Normal (Normal) mg/dL Ur Leukocyte Esterase Small H (Negative) Urine Microscopic RBC 50-100 H (0-3) per hpf Urine Microscopic WBC 5-15 H (0-3) per hpf Ur Squamous Epith Cells Many H (None-Few) per lpf Urine Bacteria None Seen (None-Few) per hpf Hyaline Casts None Seen (None-Few) per lpf Salicylates (15.0-30.0) mg/dL Urine Opiates Screen Negative (Pubpet=365) ng/mL Acetaminophen (10-20) mcg/mL Ur Barbiturates Screen Negative (Fmcmof=207) ng/mL Ur Phencyclidine Scrn Negative (Cutoff=25) ng/mL Ur Amphetamines Screen Negative (Kbusox=3832) ng/mL U Benzodiazepines Scrn Negative (Pkyavs=772) ng/mL Urine Cocaine Screen Negative (Cutoff= 300) ng/mL U Marijuana (THC) Screen Negative (Cutoff = 50) ng/mL Ethyl Alcohol (Less than 10) mg/dL 07/12/17 Range/Units 12:19 WBC (4.3-11.1) K/mcL RBC (3.82-4.97) M/mcL Hgb (11.5-15.4) g/dL Hct (35.3-44.9) % MCV (83.0-100.0) fL MCH (28.0-33.3) pg MCHC (31.6-35.5) g/dL RDW (11.5-14.5) % Plt Count (140-400) K/mcL MPV (9.4-12.4) fL Immature Gran % (0-4) % Seg Neutrophils % % Lymphocytes % % Monocytes % % Eosinophils % % Basophils % % Neutrophils # (1.6-8.9) K/mcL Lymphocytes # (0.6-4.6) K/mcL Monocytes # (0.0-1.3) K/mcL Eosinophils # (0.0-0.6) K/mcL Basophils # (0.0-0.2) K/mcL Sodium 138 (136-145) mEq/L Potassium 3.3 L (3.5-5.1) mEq/L Chloride 106 (98-107) mEq/L Carbon Dioxide 20 L (23-29) mEq/L BUN 6 (6-20) mg/dL Creatinine 0.70 (0.60-1.20) mg/dL Est GFR ( Amer) > 60 (> 60) Est GFR (Non-Af Amer) > 60 (> 60) BUN/Creatinine Ratio 9 (6-26) Glucose 122 H (70-105) mg/dL Calculated Osmolality 285 (280-300) Calcium 8.9 (8.6-10.3) mg/dL Urine Color (Yellow) Urine Clarity (Clear) Urine pH (5.0-8.0) pH Units Ur Specific [place] (1.010-1.025) Urine Protein (Neg-Trace) mg/dL Urine Glucose (UA) (Normal) mg/dL Urine Ketones (Negative) mg/dL Urine Blood (Negative) Urine Nitrite (Negative) Urine Bilirubin (Negative) Urine Urobilinogen (Normal) mg/dL Ur Leukocyte Esterase (Negative) Urine Microscopic RBC (0-3) per hpf Urine Microscopic WBC (0-3) per hpf Ur Squamous Epith Cells (None-Few) per lpf Urine Bacteria (None-Few) per hpf Hyaline Casts (None-Few) per lpf Salicylates < 2.5 L (15.0-30.0) mg/dL Urine Opiates Screen (Nilqbu=899) ng/mL Acetaminophen < 10 L (10-20) mcg/mL Ur Barbiturates Screen (Kvqywt=832) ng/mL Ur Phencyclidine Scrn (Cutoff=25) ng/mL Ur Amphetamines Screen (Ebvlef=8538) ng/mL U Benzodiazepines Scrn (Nzjtme=045) ng/mL Urine Cocaine Screen (Cutoff= 300) ng/mL U Marijuana (THC) Screen (Cutoff = 50) ng/mL Ethyl Alcohol < 10 (Less than 10) mg/dL Attestation Statement - Attestation Attestation: I, Samir Simms, examined this patient and my medical decision-making was reviewed with the SENIOR GAME ADVISOR/PA/Advanced Practice Nurse/Resident Physician. I agree with the documented findings, disposition and treatment plan as described except to the extent set forth below. 37-year-old female presents emergency department for evaluation of behavioral health. Patient recently gave 2 days ago and has since become increasingly confused. Patient states she has suicidal ideation in the emergency department because she feels that for "lying to everyone". Was confused when she was initially brought on the emergency department from labor and delivery, believing we were going to kill her and was concerned that it would hurt. Patient denies fever, chills, nausea, vomiting, diarrhea. states that she has a long history of mental illness has been unable to take her antipsychotic medication secondary to the . Patient plans on breast-feeding. Patient took Zoloft 50 mg per day during the . She denies an attempt to end her life. Patient will be medically cleared and evaluated by behavioral health specialist.
[2017-07-12 15:09] LABS: Acetaminophen < 10 mcg/mL (10-20); Ethanol < 10 mg/dL (Less than 10); Salicylate < 2.5 mg/dL (15.0-30.0)
[2017-07-12] MEDS ORDERED: Ibuprofen 600 MG TABLET PO ONE (15:09)
[2017-07-12] MEDS ORDERED: Mag Hydrox/Al Hydrox/Simeth 30 ML UDC PO PRN (19:52)
[2017-07-12] MEDS ORDERED: MOM Conc 10 ML UD.LIQ PO PRN (19:52)
[2017-07-12] MEDS ORDERED: *HR* LORazepam 1 MG TABLET PO PRN (19:52)
[2017-07-12] MEDS: hydrOXYzine pamoate 25 MG CAPSULE PO PRN (20:35)
[2017-07-12] MEDS ORDERED: OLANZapine 5 MG TAB.RAPDIS PO ONE (20:35)
[2017-07-13] MEDS: Haloperidol Lactate 5 MG/ML VIAL IM PRN (01:53)
[2017-07-13] MEDS: *HR* LORazepam 2 MG/ML VIAL IM PRN (01:54)
[2017-07-13] MEDS: hydrOXYzine pamoate 25 MG CAPSULE PO PRN ×2 (10:22→21:34)
--- NOTE | 2017-07-13 15:13 | Psychiatry History & Physical ---
Date of Encounter: 07/13/17 Time of Encounter: 15:00 History of Present Illness Patient Stated Chief Complaint: they are trying to kill me Medicare Admission Attestation: For traditional Medicare patients the provided hospital inpatient services are reasonable and necessary and in the case of services not specified as inpatient -only under 42 CFR 419.22 (n), that they are appropriately provided as inpatient services in accordance 42 CFR 412.3. For Critical Access Hospital the patient may reasonably be expected to be discharged or transferred to a hospital within 96 hours after admission to the Critical Access Hospital. Admitted From: Emergency Dept Plans for Post Hospital Care: Home History of Present Illness: Ms. Bruce is a 37 year old female . Ms. Bruce was admitted from the emergency room. She did not cooperate with an interview with me and so information is gleaned from previous discharge summary in 2013.. Includes the information from the emergency room and includes on the report the patient's who I spoke to by phone. To briefly summarize. The patient has not given to her child. She was in labor and delivery and agreed to stay on his guest she had been anxious about other people and when her left to check on the other child at home she became increasingly paranoid and agitated she presented in the ER and agitated state during this period of time her was able to get her to sign in voluntarily and have 30 minutes of clarity. After that the patient became disorganized [id number] and behaved in a bizarre manner. Specifically she was prescribed Zyprexa medicine that she been on before and she said they are trying to kill me. The patient had been on Zoloft during her . And Zyprexa was to be restarted she is followed by [facility] but the patient was breast-feeding. We spoke to the patient's and he agrees not to have breast-feeding as is medically necessary that she not be breast-feeding during this time. Past Med Surg Social Fam HX - Past Medical History Source: old records reviewed Medical history: hypertension, other - Past Psychiatric History Psychiatric history: Reports: depression, previous psychiatric hospitalization Family psychiatric history: Yes Family History of Suicide: None - Social History Smoking Status: Never smoker Smokeless Tobacco Status: No Alcohol use: none Drug use: none Occupational status: previously employed Current living situation: Home - Independent, Home, With Family Activity Level: Independent ambulation Recent Out of Country Travel Within the Last 8 Weeks: No Exposure or Possible Exposure to Illness During Travel: No - Family History Mother Family Member Ethnicity: Non- Living Status: Still Living Hx Family Endocrine Disorder: Yes (diabetes) Medications & Allergies Pnv Cmb#21/Iron/Folic Acid [ Complete Caplet] 1 each PO DAILY 06/22/17 [ History] Sertraline [Zoloft] 50 mg PO DAILY 06/22/17 [History] Docusate [Colace] 100 mg PO BID #30 capsule 07/11/17 [Rx] Ibuprofen [Motrin] 600 mg PO Q6HR PRN #30 tablet 07/11/17 [Rx] Ondansetron HCl [Ondansetron HCl] 4 mg PO BID PRN 07/12/17 [History] 3 Allergy/AdvReac Type Severity Reaction Status Date / Time No Known Allergies Allergy Verified 07/12/17 16:52 Review of Systems Psychiatric: Reports: suicidal ideation, confusion, difficulty concentrating Exam - HEENT Head exam IM: Present: atraumatic, normal inspection, normocephalic Eye exam IM: Present: EOMI ENT exam IM: Present: mucous membranes dry - Neurological Neurological exam: Present: no focal deficits - Constitutional Vitals: Temp Pulse Resp BP Pulse Ox 98.3 F 79 18 151/83 98 07/13/17 08:57 07/13/17 08:57 07/13/17 08:57 07/13/17 08:57 07/12/17 11:50 - Musculoskeletal Gait: normal, slow - Psychiatric Patient Orientation: Yes Person, Yes Place Behavior: anxious, uncooperative Psychomotor activity: Slowed Eye Contact: Minimal Contact Affect description: blunted Speech Volume: No speech Speech pattern: non-verbal Thought Content: Yes Suicidal ideation, Yes Overt delusions Perceptual Disturbances: Yes Reacting to internal stimuli Attention Span Ability: Unable to Focus Memory Description: Immediate Intact, Immediate Impaired, Recent Impaired Patient Reliability: Not Reliable Historian Intelligence Estimate: Average Judgment: Poor Insight: None Results - Labs Labs: Laboratory Last Values WBC 9.4 K/mcL (4.3-11.1) 07/12/17 12:19 RBC 3.98 M/mcL (3.82-4.97) 07/12/17 12:19 Hgb 11.9 g/dL (11.5-15.4) 07/12/17 12:19 Hct 35.8 % (35.3-44.9) 07/12/17 12:19 MCV 89.9 fL (83.0-100.0) 07/12/17 12:19 MCH 29.9 pg (28.0-33.3) 07/12/17 12:19 MCHC 33.2 g/dL (31.6-35.5) 07/12/17 12:19 RDW 13.5 % (11.5-14.5) 07/12/17 12:19 Plt Count 183 K/mcL (140-400) 07/12/17 12:19 MPV 9.8 fL (9.4-12.4) 07/12/17 12: Immature Gran % 0.5 % (0-4) 07/12/17 12: Seg Neutrophils % 84.4 % 07/12/17 12:19 Lymphocytes % 12.0 % 07/12/17 12:19 Monocytes % 2.7 % 07/12/17 12:19 Eosinophils % 0.2 % 07/12/17 12:19 Basophils % 0.2 % 07/12/17 12:19 Neutrophils # 7.9 K/mcL (1.6-8.9) 07/12/17 12:19 Lymphocytes # 1.1 K/mcL (0.6-4.6) 07/12/17 12:19 Monocytes # 0.3 K/mcL (0.0-1.3) 07/12/17 12:19 Eosinophils # 0.0 K/mcL (0.0-0.6) 07/12/17 12:19 Basophils # 0.0 K/mcL (0.0-0.2) 07/12/17 12:19 Sodium 138 mEq/L (136-145) 07/12/17 12:19 Potassium 3.3 mEq/L (3.5-5.1) L 07/12/17 12:19 Chloride 106 mEq/L (98-107) 07/12/17 12:19 Carbon Dioxide 20 mEq/L (23-29) L 07/12/17 12:19 BUN 6 mg/dL (6-20) 07/12/17 12:19 Creatinine 0.70 mg/dL (0.60-1.20) 07/12/17 12:19 Est GFR ( Amer) > 60 (> 60) 07/12/17 12:19 Est GFR (Non-Af Amer) > 60 (> 60) 07/12/17 12:19 BUN/Creatinine Ratio 9 (6-26) 07/12/17 12:19 Glucose 122 mg/dL (70-105) H 07/12/17 12:19 Calculated Osmolality 285 (280-300) 07/12/17 12:19 Calcium 8.9 mg/dL (8.6-10.3) 07/12/17 12:19 Urine Color Yellow (Yellow) 07/12/17 11:58 Urine Clarity Clear (Clear) 07/12/17 11:58 Urine pH 6.0 pH Units (5.0-8.0) 07/12/17 11:58 Ur Specific [place] 1.022 (1.010-1.025) 07/12/17 11:58 Urine Protein Trace mg/dL (Neg-Trace) 07/12/17 11:58 Urine Glucose (UA) Normal mg/dL (Normal) 07/12/17 11:58 Urine Ketones 40 mg/dL (Negative) H 07/12/17 11:58 Urine Blood Large (Negative) H 07/12/17 11:58 Urine Nitrite Negative (Negative) 07/12/17 11:58 Urine Bilirubin Negative (Negative) 07/12/17 11:58 Urine Urobilinogen Normal mg/dL (Normal) 07/12/17 11:58 Ur Leukocyte Esterase Small (Negative) H 07/12/17 11:58 Urine Microscopic RBC 50-100 per hpf (0-3) H 07/12/17 11:58 Urine Microscopic WBC 5-15 per hpf (0-3) H 07/12/17 11:58 Ur Squamous Epith Cells Many per lpf (None-Few) H 07/12/17 11:58 Urine Bacteria None Seen per hpf (None-Few) 07/12/17 11:58 Hyaline Casts None Seen per lpf (None-Few) 07/12/17 11:58 Salicylates < 2.5 mg/dL (15.0-30.0) L 07/12/17 12:19 Urine Opiates Screen Negative ng/mL (Dgovoe=314) 07/12/17 11:58 Acetaminophen < 10 mcg/mL (10-20) L 07/12/17 12:19 Ur Barbiturates Screen Negative ng/mL (Bzwwzf=058) 07/12/17 11:58 Ur Phencyclidine Scrn Negative ng/mL (Cutoff=25) 07/12/17 11:58 Ur Amphetamines Screen Negative ng/mL (Wwuill=3516) 07/12/17 11:58 U Benzodiazepines Scrn Negative ng/mL (Lxisyn=140) 07/12/17 11:58 Urine Cocaine Screen Negative ng/mL (Cutoff= 300) 07/12/17 11:58 U Marijuana (THC) Screen Negative ng/mL (Cutoff = 50) 07/12/17 11:58 Ethyl Alcohol < 10 mg/dL (Less than 10) 07/12/17 12:19 Assessment and Plan (1) Severe recurrent major depressive disorder with psychotic symptoms Current visit: Yes Status: Acute Plan: Admit inpatient for safety and stabilization, Close observation, Encourage participation in unit milieu, Secure weapons Risks, benefits, side effects, alternatives discussed w/pt: Yes Patient agreeable to treatment: Yes Plans for Post Hospital Care: Home Estimated Length of Stay (Days): 10 (2) depression Current visit: Yes Status: Acute Plan: Admit inpatient for safety and stabilization, Close observation, Monitor appetite Risks, benefits, side effects, alternatives discussed w/pt: No Patient agreeable to treatment: No Plans for Post Hospital Care: Home Estimated Length of Stay (Days): 10
[2017-07-13] MEDS: Ibuprofen 400 MG TABLET PO PRN (21:34)
[2017-07-14] MEDS: *HR* LORazepam 2 MG/ML VIAL IM PRN (06:19)
[2017-07-14] MEDS: Haloperidol Lactate 5 MG/ML VIAL IM PRN (06:19)
--- NOTE | 2017-07-14 12:27 | Psychiatry Progress Note ---
Date of Encounter: 07/14/17 Time of Encounter: 12:13 Subjective Interval history: Patient discussed on rounds by her multidisciplinary treatment and all interim notes seen and reviewed. Patient reportedly was extremely agitated yesterday causing hospital security to be called. She was not not redirectible and subsequently medicated with IM Haldol 5mg, Ativan 1mg and Benadryl 50mg stat as she was deemed a threat to her self and others. There were no additional incident overnight. Patient was seen this morning and was more cooperative and well related. She presented with much improved thought process but remains paranoid and slightly disorganized. She mentioned she does not trust any one unit as "people are conspiring to take her son from her". She refused to be restarted back on Zyprexa despite enough psychoeducation on the importance of the need for an anti psychotic to speed up recovery time for her to be with the baby. She however requested to be put back on her Sertraline. She denied problems with her sleep/appetite. Patient continue to exhibit poor judgment, insight and impulse control. She remains a risk to self and will continue to benefit from additional hospitalization. Review of Systems Constitutional: Denies: fever, chills, weakness, weight change Eyes: Denies: eye pain, vision change Ears, Nose, Throat: Denies: ear pain, throat pain, dental pain, hearing loss, congestion Cardiovascular: Denies: chest pain, palpitations, dyspnea on exertion Respiratory: Denies: cough, dyspnea, wheezes Gastrointestinal: Denies: abdominal pain, nausea, vomiting, diarrhea, constipation Musculoskeletal: Denies: joint swelling, joint pain Neurological: Denies: headache, weakness, numbness, memory loss Psychiatric: Reports: suicidal ideation, confusion, difficulty concentrating, other Results - Vital Signs Vital Signs: Temp Pulse Resp BP Pulse Ox 97.2 F L 81 20 124/88 98 07/14/17 09:00 07/14/17 09:00 07/14/17 09:00 07/14/17 09:00 07/12/17 11:50 Assessment and Plan (1) psychosis Current visit: Yes Status: Acute (2) Acute psychosis Current visit: Yes Status: Acute (3) Severe recurrent major depressive disorder with psychotic symptoms Current visit: Yes Status: Acute Risks, benefits, side effects, alternatives discussed w/pt: Yes Patient agreeable to treatment: Yes Consult Discharge Plan - Plan Referrals: [facility] [place] [Outside] - 07/26/17 3:00 pm (The above appointment is with Henny Carter for outpatient mental health counseling services. You will also see Dr. Dee Martins for outpatient psychiatric assessment and medication management services on 07/30/2017 at 9:15 AM and again on 08/15/2017 at 3:30pm.) Psychiatry Exam - Constitutional Vitals: Temp Pulse Resp BP Pulse Ox 97.2 F L 81 20 124/88 98 07/14/17 09:00 07/14/17 09:00 07/14/17 09:00 07/14/17 09:00 07/12/17 11:50 General appearance: age & developmentally appropriate - Musculoskeletal Gait: normal - Psychiatric Patient Orientation: Yes Person, Yes Place, Yes Circumstance Level of alertness: Alert Behavior: cooperative, guarded, suspicious Psychomotor activity: Normal Eye Contact: Maintains Eye Contact Mood Description: Euthymic/stable Affect description: congruent with mood Speech Volume: Normal Speech pattern: normal rate, normal rhythm, normal tone Language & Vocabulary: consistent with education Thought Process: Linear Thought Content: Yes Suicidal ideation Perceptual Disturbances: No Auditory hallucinations, No Visual hallucinations Attention Span Ability: Unable to Sustain Attention Memory Description: Grossly Intact Patient Reliability: Reliable Historian Fund of knowledge: Yes average Intelligence Estimate: Average Judgment: Poor Insight: None
[2017-07-14] MEDS: OLANZapine 5 MG TAB.RAPDIS PO SCH ×2 (13:30→21:30)
[2017-07-14] MEDS: Ibuprofen 400 MG TABLET PO PRN (22:48)
--- NOTE | 2017-07-15 10:41 | Psychiatry Progress Note ---
Date of Encounter: 07/15/17 Time of Encounter: 10:29 Subjective Interval history: Patient discussed on rounds by her multidisciplinary treatment and all interim notes seen and reviewed. There were no reported behavioral issues or incident overnight. Patient refused her Zyprexa yesterday but took her Sertraline this morning. Patient was calm, cooperative and well related. She presented with a better improved insight. She admitted to feeling paranoid and thinking everyone is against her and getting the wrong medications but does not think its true. She mentioned she has come to accept the fact one needing an antipsychotic to be better and is willing to restart her Zyprexa. She also mentioned she was doing better on Effexor prior to her but was switch to Sertraline due to better S.E of the baby. She also will like to switch back to effexor. She was complaining of bilateral pain of her thighs and is taking Ibuprofen PRN with suboptimal effect. Patient is less disorganized and able to engage in a long comprehensive goal directed conversation. She is sleeping and eating well and denied any side effects from her medications. Review of Systems Constitutional: Denies: fever, chills, weakness, weight change Eyes: Denies: eye pain, vision change Ears, Nose, Throat: Denies: ear pain, throat pain, dental pain, hearing loss, congestion Cardiovascular: Denies: chest pain, palpitations, dyspnea on exertion Respiratory: Denies: cough, dyspnea, wheezes Gastrointestinal: Denies: abdominal pain, nausea, vomiting, diarrhea, constipation Musculoskeletal: Reports: other. Denies: joint swelling, joint pain Neurological: Denies: headache, weakness, numbness, memory loss Psychiatric: Reports: confusion, other Results - Vital Signs Vital Signs: Temp Pulse Resp BP Pulse Ox 97.2 F L 87 18 129/84 98 07/15/17 09:00 07/15/17 09:00 07/15/17 09:00 07/15/17 09:00 07/12/17 11:50 Assessment and Plan (1) psychosis Current visit: Yes Status: Acute (2) Acute psychosis Current visit: Yes Status: Acute (3) Severe recurrent major depressive disorder with psychotic symptoms Current visit: Yes Status: Acute Risks, benefits, side effects, alternatives discussed w/pt: Yes Patient agreeable to treatment: Yes Consult Discharge Plan - Plan Referrals: [facility] [place] [Outside] - 07/26/17 3:00 pm (The above appointment is with Henny Carter for outpatient mental health counseling services. You will also see Dr. Dee Martins for outpatient psychiatric assessment and medication management services on 07/30/2017 at 9:15 AM and again on 08/15/2017 at 3:30pm.) Psychiatry Exam - Constitutional Vitals: Temp Pulse Resp BP Pulse Ox 97.2 F L 87 18 129/84 98 07/15/17 09:00 07/15/17 09:00 07/15/17 09:00 07/15/17 09:00 07/12/17 11:50 General appearance: age & developmentally appropriate - Musculoskeletal Gait: normal - Psychiatric Patient Orientation: Yes Person, Yes Time, Yes Place, Yes Circumstance Level of alertness: Alert Behavior: calm, cooperative Psychomotor activity: Normal Eye Contact: Maintains Eye Contact Mood Description: Euthymic/stable Affect description: congruent with mood Speech Volume: Normal Speech pattern: normal rate, normal rhythm, normal tone Language & Vocabulary: consistent with education Thought Process: Logical, Goal Oriented Thought Content: Yes Paranoid delusion Perceptual Disturbances: Yes Reacting to internal stimuli Attention Span Ability: Capable of Focused Attention Memory Description: Grossly Intact Patient Reliability: Reliable Historian Fund of knowledge: Yes average Intelligence Estimate: Average Judgment: Limited Insight: Partial
[2017-07-15] MEDS ORDERED: OLANZapine 5 MG TAB.RAPDIS PO ONE (11:43)
[2017-07-15] MEDS: OLANZapine 5 MG TAB.RAPDIS PO SCH ×2 (15:14→20:53)
[2017-07-16] MEDS ORDERED: OLANZapine 5 MG TAB.RAPDIS PO SCH (09:00)
--- NOTE | 2017-07-16 11:11 | Psychiatry Progress Note ---
Date of Encounter: 07/16/17 Time of Encounter: 10:45 Subjective Interval history: is 37 year old female admitted with psychosis , chart reviewed and case d/w staff. she is irritable, anxious and has been refusing zyprexa on and off, states today i refused because it tastes like fruit so clearly it is not zyprexa. she did not sleep well last night as per her, she wrote note for me stating i want to go home, isigned myself in and i have had enough i am on to your games and if you wont help me , Dr Martins will. i am not danger to my kids. states today i am very irritated and angry, still hear murmurs and some words like coffee , my distraction is TV and i cant have it here. she is at present irritable , natarajan , aud. hallucinations , remains paranoid and poor insight ,denies suicidal or homicidal ideation. will increase zyprexa 10 mg hs, also will increase effexor to 75 mg . patient agreed with plan , denies side effects.my legs feel lot better now, she is 6 days and has breast tenderness and states 2 lumps in her arm pit. will get consult. Review of Systems Psychiatric: Reports: depression, anxiety, auditory hallucinations, confusion, other Results - Vital Signs Vital Signs: Temp Pulse Resp BP Pulse Ox 98 F 98 18 135/96 98 07/16/17 09:00 07/16/17 09:00 07/16/17 09:00 07/16/17 09:00 07/12/17 11:50 Assessment and Plan (1) Severe recurrent major depressive disorder with psychotic symptoms Current visit: Yes Status: Acute Plan: Continue hospitalization, Close observation, Suicide Precautions per unit protocol, Encourage participation in unit milieu, Group Therapy, Monitor sleep, Monitor appetite, Secure weapons, Family/Supportive other meeting Additional Plan: increase zyprexa 10 mg hs Risks, benefits, side effects, alternatives discussed w/pt: Yes Patient agreeable to treatment: Yes (2) depression Current visit: Yes Status: Acute Plan: Continue hospitalization, Close observation, Suicide Precautions per unit protocol, Encourage participation in unit milieu, Group Therapy, Monitor sleep, Monitor appetite, Secure weapons, Family/Supportive other meeting Additional Plan: increase effexor dose. Risks, benefits, side effects, alternatives discussed w/pt: No Patient agreeable to treatment: No (3) psychosis Current visit: Yes Status: Acute Plan: Continue hospitalization, Close observation, Suicide Precautions per unit protocol, Encourage participation in unit milieu, Group Therapy, Monitor sleep, Monitor appetite, Secure weapons, Family/Supportive other meeting Risks, benefits, side effects, alternatives discussed w/pt: Yes Patient agreeable to treatment: Yes Consult Discharge Plan - Plan Referrals: [facility] Machinery Engineer Donna [Outside] - 07/26/17 3:00 pm (The above appointment is with Henny Carter for outpatient mental health counseling services. You will also see Dr. Dee Martins for outpatient psychiatric assessment and medication management services on 07/30/2017 at 9:15 AM and again on 08/15/2017 at 3:30pm.) Psychiatry Exam - Constitutional Vitals: Temp Pulse Resp BP Pulse Ox 98 F 98 18 135/96 98 07/16/17 09:00 07/16/17 09:00 07/16/17 09:00 07/16/17 09:00 07/12/17 11:50 General appearance: age & developmentally appropriate
--- NOTE | 2017-07-16 12:29 | OB/GYN Consult Note ---
Date of Encounter: 07/16/17 Time of Encounter: 12:28 Assessment and Plan (1) Mastitis associated with childbirth, delivered Current Visit: Yes Status: Acute Will begin treatment with bactrim and provide a binder for pt to use around breasts. We will continue to follow. (2) Status post vaginal delivery Current Visit: Yes Status: Acute no concerns (3) psychosis Current Visit: Yes Status: Acute Managment per primary team. History of Present Illness Consult date: 07/16/17 Reason for consult: other (breast redness and pain) History of present illness: 37 year-old admitted to psychiatry for psychosis s/p vaginal delivery of liveborn male on 07/10/17. Today she reports increasing breast pain and redness and lumps under her arms. She is not due to her psych medications. She denies any other OBGYN complaints at this time. Past Med Surg Social Fam HX - Past Medical History Medical history: other Psychiatric history: anxiety, depression - Past Surgical History Surgical History: no surgical history - Social History Smoking Status: Never smoker Smokeless Tobacco Status: No Alcohol use: none Drug use: none - Family History Mother Adopted: [place]: Bibiana Watts Family Member Ethnicity: Non- Living Status: Still Living Hx Family Cardiac Disorders: No Hx Family Respiratory Disorders: No Hx Family Cancer: No Hx Family GI Disorders: No Hx Family Genitourinary Disorders: No Hx Family Endocrine Disorder: No Hx Family Musculoskeletal Disorders: No Hx Family Neuromuscular Disorders: No Hx Family Neurologic Disorders: No Hx Family HEENT Disorders: No Hx Family Autoimmune Disorders: No Hx Family Reproductive Disorders: Yes (sister hx. PCOS) Hx Family Psychosocial Disorders: No Hx Family Medical Disorders: No Medications and Allergies Pnv Cmb#21/Iron/Folic Acid [ Complete Caplet] 1 each PO DAILY 06/22/17 [ History] Sertraline [Zoloft] 50 mg PO DAILY 06/22/17 [History] Docusate [Colace] 100 mg PO BID #30 capsule 07/11/17 [Rx] Ibuprofen [Motrin] 600 mg PO Q6HR PRN #30 tablet 07/11/17 [Rx] Ondansetron HCl [Ondansetron HCl] 4 mg PO BID PRN 07/12/17 [History] 3 Allergy/AdvReac Type Severity Reaction Status Date / Time No Known Allergies Allergy Verified 07/12/17 16:52 Review of Systems All Systems: reviewed and no additional remarkable complaints except as stated Exam - Vital Signs Vital signs: Initial Vital Signs Temp Pulse Resp BP Pulse Ox 98 F 90 20 125/86 98 07/12/17 11:50 07/12/17 11:50 07/12/17 11:50 07/12/17 11:50 07/12/17 11:50 - Constitutional Constitutional: well developed, well nourished, no acute distress - HEENT HEENT: Mucus Membranes Moist - Lungs Respiratory exam: CTAB - Cardiovascular Cardiovascular exam: RRR - Breasts Breast: bilateral: mass (lymphadenopathy bilaterally), skin changes (erythema bilaterally) - Abdomen Abdomen: Present: non tender - Extremities Extremities exam: pedal edema (mild bilaterally) Results Result Diagrams: 07/12/17 12:19 07/12/17 12:19 Abnormal lab results Potassium 3.3 mEq/L (3.5-5.1) L 07/12/17 12:19 Carbon Dioxide 20 mEq/L (23-29) L 07/12/17 12:19 Glucose 122 mg/dL (70-105) H 07/12/17 12:19 Urine Ketones 40 mg/dL (Negative) H 07/12/17 11:58 Urine Blood Large (Negative) H 07/12/17 11:58 Ur Leukocyte Esterase Small (Negative) H 07/12/17 11:58 Urine Microscopic RBC 50-100 per hpf (0-3) H 07/12/17 11:58 Urine Microscopic WBC 5-15 per hpf (0-3) H 07/12/17 11:58 Ur Squamous Epith Cells Many per lpf (None-Few) H 07/12/17 11:58 Salicylates < 2.5 mg/dL (15.0-30.0) L 07/12/17 12:19 Acetaminophen < 10 mcg/mL (10-20) L 07/12/17 12:19 All other labs normal. Consult Discharge Plan - Plan Referrals: Boni Salomon [facility] Product Consultant [place] [Outside] - 07/26/17 3:00 pm (The above appointment is with Henny Carter for outpatient mental health counseling services. You will also see Dr. Dee Martins for outpatient psychiatric assessment and medication management services on 07/30/2017 at 9:15 AM and again on 08/15/2017 at 3:30pm.)
[2017-07-16] MEDS: Venlafaxine XR (24 HR) 37.5 MG CAP.ER.24H PO SCH ×2 (12:35→13:33)
[2017-07-16] MEDS ORDERED: Ibuprofen 600 MG TABLET PO PRN (12:40)
[2017-07-16] MEDS: Sulfamethoxazole/Trimeth DS 1 EACH TABLET PO SCH ×2 (13:30→22:12)
[2017-07-16] MEDS: OLANZapine 10 MG TAB.RAPDIS PO SCH (22:12)
[2017-07-17] MEDS: Sulfamethoxazole/Trimeth DS 1 EACH TABLET PO SCH ×2 (09:13→22:06)
[2017-07-17] MEDS: Venlafaxine XR (24 HR) 37.5 MG CAP.ER.24H PO SCH (09:13)
--- NOTE | 2017-07-17 10:17 | Psychiatry Progress Note ---
Date of Encounter: 07/17/17 Time of Encounter: 09:50 Subjective Interval history: Patient seen today , case d/w treatment team. I had blow out yesterday , I thought other patient talking about me and telling i am mean so i yelled at them and cursed them , now i feel bad , thats what i do i fight and i was very messed up and angry yesterday. She is realizing her outburst and working on them , still paranoid , states slept well last night and took her medication. she was educated on med compliance and their response. will increase effexor to 75 mg today and continue stabilization , she remains angry , paranoid , aud. hallucination and natarajan. Review of Systems Psychiatric: Reports: depression, anxiety, auditory hallucinations, confusion, other Results - Vital Signs Vital Signs: Temp Pulse Resp BP Pulse Ox 98.3 F 72 20 129/87 98 07/16/17 21:00 07/16/17 21:00 07/16/17 21:00 07/16/17 21:00 07/12/17 11:50 Assessment and Plan (1) Severe recurrent major depressive disorder with psychotic symptoms Current visit: Yes Status: Acute Risks, benefits, side effects, alternatives discussed w/pt: Yes Patient agreeable to treatment: Yes (2) depression Current visit: Yes Status: Acute Risks, benefits, side effects, alternatives discussed w/pt: No Patient agreeable to treatment: No (3) psychosis Current visit: Yes Status: Acute Risks, benefits, side effects, alternatives discussed w/pt: Yes Patient agreeable to treatment: Yes Consult Discharge Plan - Plan Referrals: [facility] [Outside] - 07/26/17 3:00 pm (The above appointment is with Henny Carter for outpatient mental health counseling services. You will also see Dr. Dee Martins for outpatient psychiatric assessment and medication management services on 07/30/2017 at 9:15 AM and again on 08/15/2017 at 3:30pm.) Psychiatry Exam - Constitutional Vitals: Temp Pulse Resp BP Pulse Ox 98.3 F 72 20 129/87 98 07/16/17 21:00 07/16/17 21:00 07/16/17 21:00 07/16/17 21:00 07/12/17 11:50 General appearance: age & developmentally appropriate - Musculoskeletal Gait: normal Station: other Strength & Tone: normal for patient - Psychiatric Patient Orientation: Yes Person, Yes Time, Yes Place Level of alertness: Alert Behavior: cooperative Psychomotor activity: Normal Eye Contact: Minimal Contact Mood Description: Depressed, Anxious Affect description: congruent with mood Speech Volume: Normal Speech pattern: normal rate, normal rhythm, normal tone, fluent, spontaneous Language & Vocabulary: consistent with education Thought Process: Racing Thought Content: Yes Paranoid delusion, Yes Guilt Perceptual Disturbances: Yes Auditory hallucinations Attention Span Ability: Capable of Focused Attention Memory Description: Grossly Intact Patient Reliability: Reliable Historian Fund of knowledge: Yes abstraction ability, Yes aware of current events Intelligence Estimate: Average Judgment: Limited Insight: Partial
--- NOTE | 2017-07-17 19:06 | OB/GYN Progress Note ---
Date of Encounter: 07/17/17 Time of Encounter: 19:04 - Assessment and Plan (1) Mastitis associated with childbirth, delivered Current Visit: Yes Status: Acute Continue current management plan Please notify OB provider if develops fever or chills. Will continue to monitor while admitted. (2) psychosis Current Visit: Yes Status: Acute Remains under psych care. Subjective - Subjective Interval history: Pt remains on 1A, states breast pain has decreased and lumps have diminished in size. Denies fevers, or chills. Pt states lochia remains minimal. Patient reports: appetite normal, voiding normally, pain well controlled, ambulating normally Objective - Latest Vital Signs Latest vital signs: Vital Signs Temp Pulse Resp BP 07/17/17 09:00 97.3 F L 96 16 136/95 07/16/17 21:00 98.3 F 72 20 129/87 Intake and Output 07/17/17 07/17/17 07/17/17 07:59 15:59 23:59 Other: Meal Lunch Dinner Percent of Meal Consumed 100% 50% - Exam Comments: Bilateral breast remain firm, swollen with scattered erythema, Pt is wearing binder.
[2017-07-17] MEDS: OLANZapine 10 MG TAB.RAPDIS PO SCH (22:06)
[2017-07-18] MEDS: traZODone 50 MG TABLET PO PRN (03:37)
[2017-07-18] MEDS: Sulfamethoxazole/Trimeth DS 1 EACH TABLET PO SCH ×2 (09:13→22:16)
[2017-07-18] MEDS: Venlafaxine XR (24 HR) 75 MG CAP.ER.24H PO SCH (09:13)
--- NOTE | 2017-07-18 10:30 | Psychiatry Progress Note ---
Date of Encounter: 07/18/17 Time of Encounter: 10:15 Subjective Interval history: Patient seen today , case d/w treatment team she had been agitated and has been acting out, she was alone in her room since admission as she was very psychotic and belinda room opened and other client in the same room she agreed she did not liked it and mentioned to staff that other client had threathen to kill her but other client denied and this morning both were sitting in day room talking and eating breakfast. she said now she does not feel threathened, she wants to work on her anger. she remains psychotic and agitated. educated her about borderline personality . states breast is not painful, and lumps are there but decrease in size , she is compliant at present with medication. will increase olanzapine to 15 mg hs and add trileptal 150 mgbid. Review of Systems Psychiatric: Reports: depression, anxiety, auditory hallucinations, confusion, other Results - Vital Signs Vital Signs: Temp Pulse Resp BP Pulse Ox 97.9 F 114 18 130/90 98 07/18/17 09:00 07/18/17 09:00 07/18/17 09:00 07/18/17 09:00 07/12/17 11:50 Assessment and Plan (1) Severe recurrent major depressive disorder with psychotic symptoms Current visit: Yes Status: Acute Risks, benefits, side effects, alternatives discussed w/pt: Yes Patient agreeable to treatment: Yes (2) depression Current visit: Yes Status: Acute Risks, benefits, side effects, alternatives discussed w/pt: No Patient agreeable to treatment: No (3) psychosis Current visit: Yes Status: Acute Risks, benefits, side effects, alternatives discussed w/pt: Yes Patient agreeable to treatment: Yes Consult Discharge Plan - Plan Referrals: Boni Salomon [place] Manager [employer] Research Donna [Outside] - 07/26/17 3:00 pm (The above appointment is with Henny Carter for outpatient mental health counseling services. You will also see Dr. Dee Martins for outpatient psychiatric assessment and medication management services on 07/30/2017 at 9:15 AM and again on 08/15/2017 at 3:30pm.) Psychiatry Exam - Constitutional Vitals: Temp Pulse Resp BP Pulse Ox 97.9 F 114 18 130/90 98 07/18/17 09:00 07/18/17 09:00 07/18/17 09:00 07/18/17 09:00 07/12/17 11:50 General appearance: age & developmentally appropriate - Musculoskeletal Gait: normal - Psychiatric Patient Orientation: Yes Person, Yes Time, Yes Place Level of alertness: Alert Behavior: agitated, impulsive Psychomotor activity: Normal Eye Contact: Minimal Contact Mood Description: Depressed, Irritable Affect description: congruent with mood Speech Volume: Normal Speech pattern: appropriate Language & Vocabulary: consistent with education Thought Process: Racing Thought Content: Yes Paranoid delusion Perceptual Disturbances: No Auditory hallucinations, No Visual hallucinations Attention Span Ability: Unable to Sustain Attention Memory Description: Grossly Intact Patient Reliability: Reliable Historian Fund of knowledge: Yes average Intelligence Estimate: Average Judgment: Limited Insight: Minimal
--- NOTE | 2017-07-18 14:54 | Event Note ---
Date of Encounter: 07/18/17 Time of Encounter: 14:42 Patient denies any pain with bilateral breast. Patient is currently being treated for mastitis. Patient has a binder around chest. Dr. Ledbetter at bedside to law secretary. Exam completed: Breasts are gravid bilaterally. No pain on exam. No red streaks noted. Small hard areas noted. Patient encouraged to continue keep binder in place and finish antibiotic therapy. Patient will no longer need to be followed by OBGYN unless new problems arise.
[2017-07-18] MEDS: OLANZapine 10 MG TAB.RAPDIS PO SCH (20:42)
[2017-07-18] MEDS: OXcarbazepine 150 MG TABLET PO SCH (20:44)
[2017-07-19] MEDS: Venlafaxine XR (24 HR) 75 MG CAP.ER.24H PO SCH (08:47)
[2017-07-19] MEDS: Sulfamethoxazole/Trimeth DS 1 EACH TABLET PO SCH ×2 (08:47→21:32)
[2017-07-19] MEDS: OXcarbazepine 150 MG TABLET PO SCH (08:47)
--- NOTE | 2017-07-19 09:59 | Psychiatry Progress Note ---
Date of Encounter: 07/19/17 Time of Encounter: 09:45 Subjective Interval history: Patient seen today , case d/w treatment team , she did not take her trileptal today as per she took last night and it made her hallucinate so she asked not to take till she talks to me. she is also having diastolic BP high and has been given propranolol , also her pulse high. she is not hallucinating and her paranoia is better, slept better woke up one time only. I feel calmer today , she is not irritable , she is keeping to herself as feels will get upset and is attending groups , denies side effects. she looks calmer and good eye contact. start dc planning, her is supportive , FMLA done for him to be with her and her baby. she is not suicidal/homicidal. Review of Systems Psychiatric: Reports: depression, anxiety, auditory hallucinations, confusion, other Results - Vital Signs Vital Signs: Temp Pulse Resp BP Pulse Ox 98.1 F 103 16 123/97 98 07/18/17 21:00 07/18/17 21:00 07/18/17 21:00 07/18/17 21:00 07/12/17 11:50 Assessment and Plan (1) Severe recurrent major depressive disorder with psychotic symptoms Current visit: Yes Status: Acute Risks, benefits, side effects, alternatives discussed w/pt: Yes Patient agreeable to treatment: Yes (2) depression Current visit: Yes Status: Acute Risks, benefits, side effects, alternatives discussed w/pt: No Patient agreeable to treatment: No (3) psychosis Current visit: Yes Status: Acute Risks, benefits, side effects, alternatives discussed w/pt: Yes Patient agreeable to treatment: Yes Consult Discharge Plan - Plan Referrals: [facility] Engineering Documentation Specialist [place] [Outside] - 07/26/17 3:00 pm (The above appointment is with Henny Carter for outpatient mental health counseling services. You will also see Dr. Dee Martins for outpatient psychiatric assessment and medication management services on 07/30/2017 at 9:15 AM and again on 08/15/2017 at 3:30pm.) Psychiatry Exam - Constitutional Vitals: Temp Pulse Resp BP Pulse Ox 98.1 F 103 16 123/97 98 07/18/17 21:00 07/18/17 21:00 07/18/17 21:00 07/18/17 21:00 07/12/17 11:50 General appearance: age & developmentally appropriate, well-groomed, well- nourished - Musculoskeletal Gait: normal Station: relaxed Strength & Tone: normal for patient - Psychiatric Patient Orientation: Yes Person, Yes Time, Yes Place Level of alertness: Alert Behavior: calm, cooperative Psychomotor activity: Slowed Eye Contact: Maintains Eye Contact Mood Description: Anxious Affect description: congruent with mood Speech Volume: Normal Speech pattern: normal rate, normal rhythm, normal tone Language & Vocabulary: consistent with education Thought Process: Intact Thought Content: Yes Paranoid delusion Perceptual Disturbances: No Auditory hallucinations, No Visual hallucinations Attention Span Ability: Capable of Focused Attention Memory Description: Grossly Intact Patient Reliability: Reliable Historian Fund of knowledge: Yes abstraction ability, Yes aware of current events Intelligence Estimate: Average Judgment: Fair Insight: Partial
[2017-07-19 10:46] LABS: Chol/HDL Ratio 3.5 (0-4.9)
[2017-07-19 12:01] LABS: Estimated Average Glucose 105 mg/dl; Hemoglobin A1C 5.3 %
[2017-07-19] MEDS: traZODone 50 MG TABLET PO PRN (21:32)
[2017-07-19] MEDS: OLANZapine 10 MG TAB.RAPDIS PO SCH (21:33)
--- NOTE | 2017-07-20 09:54 | Discharge Summary ---
Date of Encounter: 07/20/17 Time of Encounter: 09:30 Diagnosis - Discharge Diagnosis (1) Severe recurrent major depressive disorder with psychotic symptoms Status: Acute Comments: Patient has shown improvement in her depression , no si/no hi , no a/v hallucination and psychosis improved. (2) depression Status: Resolved (3) psychosis Status: Resolved Medications - Discharge Medications Prescriptions: OLANZapine [Zyprexa Zydis] 15 mg PO HS #14 tab.rapdis Propranolol [Inderal] 10 mg PO BID #14 tablet Sulfamethoxazole/Trimeth DS [Bactrim Ds] 1 each PO BID #10 tablet Venlafaxine XR (24 HR) [Effexor XR] 75 mg PO DAILY #14 cap.er.24h Pnv Cmb#21/Iron/Folic Acid [ Complete Caplet] 1 each PO DAILY 06/22/17 [ History] Docusate [Colace] 100 mg PO BID #30 capsule 07/11/17 [Rx] Ibuprofen [Motrin] 600 mg PO Q6HR PRN #30 tablet 07/11/17 [Rx] Ondansetron HCl 4 mg PO BID PRN 07/12/17 [History] OLANZapine [Zyprexa Zydis] 15 mg PO HS #14 tab.rapdis 07/20/17 [Rx] Propranolol [Inderal] 10 mg PO BID #14 tablet 07/20/17 [Rx] Sulfamethoxazole/Trimeth DS [Bactrim Ds] 1 each PO BID #10 tablet 07/20/17 [Rx] Venlafaxine XR (24 HR) [Effexor XR] 75 mg PO DAILY #14 cap.er.24h 07/20/17 [Rx] 3 Allergy/AdvReac Type Severity Reaction Status Date / Time No Known Allergies Allergy Verified 07/12/17 16:52 Results Procedures and tests throughout hospitalization: Completed Lab Orders Category Date Time Status Hgb A1C Routine Lab 07/19/17 10:11 Completed Lipid Panel Routine Lab 07/19/17 10:11 Completed Provider Date of admission: 07/12/17 16:59 Primary care physician: PCP NONE Consults: 07/16/17 11:22 Consult to HAND PROFILER [CONS] Stat Consulting Provider: BOX INSPECTOR [place] Reason for Consult: 6 days and has lumps to breast and increased tenderness. Time Notified: 11:31 Call Completed: Yes Psychiatry Exam - Constitutional Vitals: Temp Pulse Resp BP Pulse Ox 98.5 F 90 18 130/99 98 07/19/17 20:54 07/19/17 20:54 07/19/17 20:54 07/19/17 20:54 07/12/17 11:50 General appearance: age & developmentally appropriate - Musculoskeletal Gait: normal Station: relaxed Strength & Tone: normal for patient - Psychiatric Patient Orientation: Yes Person, Yes Time, Yes Place Level of alertness: Alert Behavior: calm, cooperative Psychomotor activity: Normal Eye Contact: Maintains Eye Contact Mood Description: Euthymic/stable Affect description: constricted Speech Volume: Normal Language & Vocabulary: consistent with education Thought Process: Intact, Logical Thought Content: Yes Intact Perceptual Disturbances: No Auditory hallucinations, No Visual hallucinations Attention Span Ability: Capable of Focused Attention Memory Description: Grossly Intact Patient Reliability: Reliable Historian Fund of knowledge: Yes abstraction ability, Yes aware of current events Intelligence Estimate: Average Judgment: Fair (patient has low grade paranoia and it could be her baseline or anxiety related.) Insight: Partial Hospital Course Hospital course: Ms. Bruce is a 37 year old female . . Ms. Bruce was admitted from the emergency room. She became increasingly paranoid and agitated after 2 day of her delivery ,she presented in the ER and agitated state during this period of time her was able to get her to sign in voluntarily and have 30 minutes of clarity. After that the patient became disorganized [id number] and behaved in a bizarre manner. She has h/o depression and was on Zoloft thru her . The patient had been on Zoloft during her . And Zyprexa was to be restarted she is followed by [facility] but the patient was breast-feeding. We spoke to the patient's and he agrees not to have breast-feeding as is medically necessary that she not be breast-feeding during this time. During her hospital stay ,she has been angry ,agitated and paranoid , she never had suicidal or homicidal ideation , she just had problem trusting others and feeling they will hurt her and therefore had been to herself mostly , she learned coping skills and will work thru fears , she was not compliant with medications at first but with education and counselling , she at present is not danger to self/others During her stay consult was given for OBGYN as she was c/o lump and pain , DX as mastitis and Bactrim was given. she is at present on OLANZAPINE 15 MG, Effexor xr 75 mg and propranolol 10 mgbid. labs showed increase cholesterol and triglycerides , pt aware and will f/u with her PCP. Patient has good support system and will be dc to family. Time spent discussing smoking cessation with patient: 3 to 10 minutes Does patient wish to continue nicotine replacement upon disc: No (patient does not smoke) - Time Spent with Patient Total time spent providing and/or coordinating discharge services: Greater than 30 minutes Assessment and Plan - Patient/Caregiver Discharge Instructions Activity: resume usual activities as tolerated Diet: regular diet - Follow up Plan Follow up with: Boni Salomon [facility] [Outside] - 07/26/17 3:00 pm (The above appointment is with Henny Carter for outpatient mental health counseling services. You will also see Dr. Dee Martins for outpatient psychiatric assessment and medication management services on 07/30/2017 at 9:15 AM and again on 08/15/2017 at 3:30pm.) Functional capacity at discharge: independent ambulation Overall status at discharge: Stable Disposition: Home, Self-Care Quality - Multiple Antipsychotics Patient discharged on 2 or more antipsychotic medications: No Procedures - Procedures Procedures: Medication Management, Crisis Stabilization, Supportive Therapy, Group Therapy, Psychoeducational Therapy
[2017-07-20] MEDS: Sulfamethoxazole/Trimeth DS 1 EACH TABLET PO SCH (10:21)
[2017-07-20] MEDS: Venlafaxine XR (24 HR) 75 MG CAP.ER.24H PO SCH (10:21)
[2017-07-20 10:32] VITALS: BP 129/98
== END 2017-07-20 11:25 | disposition home or self-care (01) | DRG 561 ==
LOC: EMEROO 11:48 → 1ANU 16:59 → SUATTDRO 16:59 → 1ANU 17:44
PROVIDERS: ADMIT Psychiatry & Neurology Forensic Psychiatry; ATTEND Psychiatry & Neurology Psychiatry